=== PATIENT | male | born 1940 | race Caucasian/White ===

== ENCOUNTER 2022-12-09 11:36 | Emergency (ER) | payer MEDICARE ==
[2022-12-09] MEDS ORDERED: TRAZODONE50 MG PO (12:34)
[2022-12-09] MEDS ORDERED: NORVASC PO (12:34)
[2022-12-09 13:38] LABS: URINE BILIRUBIN - DIPSTICK NEGATIVE (NEGATIVE); URINE BLOOD DIPSTICK NEGATIVE (NEGATIVE); URINE COLOR YELLOW; URINE GLUCOSE - DIPSTICK NEGATIVE (NEGATIVE); URINE KETONE NEGATIVE (NEGATIVE); URINE LEUK ESTERASE NEGATIVE (NEGATIVE); URINE NITRITE - DIPSTICK NEGATIVE (Negative); URINE PROTEIN - DIPSTICK NEGATIVE (NEG-TRACE); URINE UROBILINOGEN - DIPSTICK 0.2 E.U./dL (0.2)
[2022-12-09 13:40] LABS: BASO% 0.8 % (0-3); EOS% 5.6 % (0-8); HEMATOCRIT 42.4 % (39.0-50.0); HEMOGLOBIN 13.9 g/dl (14.0-18.0); IMMATURE GRANULOCYTES 0.3 % (0.0-5.0); MEAN CELL VOLUME 95.5 fL CALC (80.0-100.0); MEAN CORPUSCULAR HGB 31.3 pG CALC (26.0-32.0); MEAN CORPUSCULAR HGB CONC 32.8 g/dL CAL (32.0-36.0); MONO% 9.7 % (2-13); NEUT# 6.1 thou/uL (1.82-7.42); NEUT% 51.6 % (42-76); RED BLOOD COUNT 4.44 mill/uL (4.70-6.10); RED CELL DISTRI WIDTH 12.4 % (11.5-15.5)
[2022-12-09 13:54] LABS: ALBUMIN 4.7 g/dL (3.2-5.0); ALKALINE PHOSPHATASE 56 u/l (38-126); ANION GAP 13 (6-22 (CALC)); BILIRUBIN, TOTAL 0.6 mg/dL (0.2-1.3); BUN 16 mg/dL (8-23); BUN/CREATININE RATIO 16 (12-20 (CALC)); CARBON DIOXIDE 28 mmol/l (22-30); CHLORIDE 103 mmol/l (95-108); GFR FOR AFR.AMER. > 60 ML/MIN (>=60 (CALC)); GFR OTHER RACES > 60 ML/MIN (>=60 (CALC)); POTASSIUM 4.4 mmol/l (3.5-5.1); SGOT/AST 31 u/l (19-48); SODIUM 140 mmol/l (137-146); TOTAL PROTEIN 7.7 g/dL (6.3-8.2)
[2022-12-09] MEDS ORDERED: LORTAB 7.57.5 MG PO (14:47)
[2022-12-09] MEDS ORDERED: VIBRAMYCIN100 M2 PO (14:47)
[2022-12-09 15:48] VITALS: BP 124/66
== END 2022-12-09 14:48 | disposition home or self-care (01) ==
LOC: ED 11:36
PROVIDERS: Nurse Practitioner
DX: N45.1 Epididymitis (principal); I10 Essential (primary) hypertension